=== PATIENT | female | born 1945 | race Caucasian/White ===

== ENCOUNTER 2017-04-11 07:10 | Emergency (ER) | payer MEDICARE, BC ==
[~2017-04-11] VITALS: Ht 157.5 cm; Wt 48.0 kg
[~2017-04-11 07:10] MED LIST: ASPI81TAEC PO; FURO40TA2 PO; K-TA10TA2 PO; LEVA250T PO; VITMTA PO
[2017-04-11] MEDS ORDERED: CARV3.12 PO (07:26)
[2017-04-11] MEDS ORDERED: FUROSEMIDE 40 MG/4 ML VIAL (J1940) IV ONE (07:30)
[2017-04-11] MEDS ORDERED: NS 500 ML IV ONE (07:45)
[2017-04-11 08:02] LABS: ABG BASE EXCESS -7.1 (-2.0-2.0); ABG HCO3 20.1 MEQ/L (22.0-26.0); ABG PARTIAL PRESSURE O2 85.5 mmHg (75.0-100.0); ABG STANDARD HCO3 18.6 MEQ/L (22.0-26.0); ABG TOTAL CO2 21.5 MEQ/L (23.0-31.0)
[2017-04-11 08:08] LABS: ABG pH (ARTERIAL) 7.248 UNITS (7.350-7.450)
--- NOTE | 2017-04-11 08:12 | REP ---
Portable chest: Single view. History: Dyspnea and cough. Comparison study: October 09, 2016. Findings: EKG monitoring electrodes overlie the chest. The patient is status post aortic valve replacement. There are clips in the right paramediastinal region. The heart is mildly enlarged. There is a diffuse interstitial pulmonary edema pattern in the lung montilla. This is somewhat less pronounced actually when compared with the October 09, 2016 prior study. There is fissural thickening. Impression: Cardiomegaly and diffuse interstitial edema pattern consistent with CHF. The patient is status post aortic valve replacement. Signed by Chico Stein MD 04/11/2017 09:05 A
[2017-04-11 08:18] LABS: BASO # 0.1 K/mm3 (0.0-0.2); BASO % 0.8 % (0.0-1.0); EOS # 0.3 K/mm3 (0.0-0.50); EOS % 2.7 % (0.0-3.0); LARGE UNSTAINED CELL # 0.1 K/mm3 (0.0-0.4); LARGE UNSTAINED CELL % 0.9 % (0.0-4.0); LYMPH # 1.9 K/mm3 (1.5-4.5); LYMPH % 15.1 % (24.0-44.0); MEAN CORPUSCULAR HEMOGLOBIN 31.9 pg (27.0-33.0); MEAN CORPUSCULAR HGB CONC 32.5 g/dl (32.0-36.5); MEAN CORPUSCULAR VOLUME 98.2 fl (80.0-96.0); MONO # 0.3 K/mm3 (0.0-0.8); MONO % 2.8 % (0.0-5.0); NEUTROPHILS # 9.1 K/mm3 (1.8-7.7); NEUTROPHILS % 77.6 % (36.0-66.0); PLATELET COUNT, AUTOMATED 483 k/mm3 (150-450); RED CELL DISTRIBUTION WIDTH 14.1 % (11.5-14.5); WHITE BLOOD COUNT 11.7 K/mm3 (4.0-10.0)
[2017-04-11 08:30] LABS: ALBUMIN 3.7 GM/DL (3.2-5.2); ALBUMIN/GLOBULIN RATIO 1.06 (1.00-1.93); BILIRUBIN,DIRECT 0.1 MG/DL (0.0-0.2); BILIRUBIN,TOTAL 0.4 MG/DL (0.2-1.0); CALCIUM LEVEL 8.5 MG/DL (8.8-10.2); CREATININE FOR GFR 1.32 MG/DL (0.55-1.02); GLOMERULAR FILTRATION RATE 41.9 (>39); POTASSIUM SERUM 4.8 MEQ/L (3.5-5.1); THYROXINE (T4) 8.3 UG/DL (4.5-12.0); TOTAL PROTEIN 7.2 GM/DL (6.4-8.2)
[2017-04-11] MEDS ORDERED: ISOVUE-370 76% 100ML VIAL (Q9967) As Ordered ONE (08:43)
--- NOTE | 2017-04-11 10:10 | REP ---
CT pulmonary angiogram: With IV contrast. History: Question pulmonary embolism. Comparison studies: Comparison is made with today's portable chest x-ray. Contrast dose: 75 cc's of Isovue [address] technique: Helical scanning is acquired and overlapping 1.5 mm and contiguous 3 mm axial images are reformatted. In addition, a 3-D work station is deployed to generate thick slab maximum intensity projection images in sagittal and coronal imaging projections. CT pulmonary angiographic findings: There is good opacification of the pulmonary arterial tree. There is no CT evidence of pulmonary embolism. The patient is status post aortic valve replacement. There is no evidence of aortic aneurysm or dissection. There are small bilateral pleural effusions. No pericardial effusion is seen. No hilar or mediastinal mass or adenopathy. Interstitial markings are somewhat prominent in the bases and there are mild emphysematous changes in the upper lung zones. Maximum intensity projection images show no evidence of filling defect or vessel cutoff to suggest a pulmonary arterial thrombus. No pulmonary mass lesion or suspicious nodule is seen. Bone window settings show no bony destructive lesion. No adrenal lesion is observed. The visualized upper abdominal structures are unremarkable. Impression: 1. No CT evidence of pulmonary embolism. 2. Small bilateral pleural effusions. 3. Status post aortic valve replacement with left atrial and left ventricular enlargement. 4. Prominent bibasilar pulmonary interstitial markings question mild edema. Signed by Chico Stein MD 04/11/2017 11:17 A
[2017-04-11 10:23] LABS: ABG BASE EXCESS -0.8 (-2.0-2.0); ABG HCO3 24.4 MEQ/L (22.0-26.0); ABG PARTIAL PRESSURE CO2 42.3 mmHg (35.0-45.0); ABG PARTIAL PRESSURE O2 92.1 mmHg (75.0-100.0); ABG STANDARD HCO3 23.8 MEQ/L (22.0-26.0); ABG TOTAL CO2 25.7 MEQ/L (23.0-31.0); ABG pH (ARTERIAL) 7.379 UNITS (7.350-7.450)
--- NOTE | 2017-04-11 10:23 | ECGEPIP ---
Stationary ECG Study [facility] - ED Test Date: 2017-04-11 Pat Name: JELLY URBINA Department: Room: - Gender: F [employer]: PB : 1945 Requested By: ABDIRIZAK Vargas Order Number: [id number] Reading MD: Latrice Wyman Measurements Intervals [place] Rate: 132 P: 37 AR: 133 QRS: 82 QRSD: 142 T: 39 QT: 299 QTc: 444 Interpretive Statements SINUS TACHYCARDIA INTRAVENTRICULAR CONDUCTION DELAY Left ventricular hypertrophy CLINICAL CORRELATION TO EXCLUDE ACUTE ISCHEMIA Electronically Signed On 04-11-2017 10:23:07 EDT by Latrice Wyman
--- NOTE | 2017-04-11 10:24 | ECGEPIP ---
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
[2017-04-11 12:41] VITALS: BP 92/59
== END 2017-04-11 12:46 | disposition short-term general hospital (02) ==
LOC: M ED 08:11
DX: R57.0 Cardiogenic shock (principal); I50.9 Heart failure, unspecified; I95.9 Hypotension, unspecified; R06.09 Other forms of dyspnea; I51.7 Cardiomegaly; J81.0 Acute pulmonary edema; I35.0 Nonrheumatic aortic (valve) stenosis; Z95.2 Presence of prosthetic heart valve; Z87.891 Personal history of nicotine dependence; Z82.49 Family history of ischemic heart disease and other diseases of the circulatory system; Z80.3 Family history of malignant neoplasm of breast; Z80.0 Family history of malignant neoplasm of digestive organs
CPT/HCPCS: 36415; 36600; 71010; 71275; 80048; 80076; 82550; 82553; 82803; 83605; 83880; 84436; 84443; 84484; 85025; 87040; 93005; 93041; 94660; 96361; 96374; 99285; J1940; Q9967

== ENCOUNTER → 2017-08-28 | Outpatient (CLI) | payer MEDICARE, BC ==
[~2017-08-28] MED LIST changes: +CARV3.12 PO; +ENTR1TAB PO; +LASI20TA PO; +LEVA1TAB PO; -LEVA250T PO; +OXYC-517 PO; +VITA-182 PO
--- NOTE | 2017-08-28 16:10 | REP ---
And an chest PA and lateral views: A comparison is 04/11/2017. There has been interim placement of a triple lead biventricular pacemaker as an interval change. Aortic valve prosthesis is again identified, unchanged. There is a small right pleural effusion as an interval change. No left pleural effusion. The lung montilla are clear otherwise. Cardiac size is upper normal. Impression: New small right pleural effusion. New pacemaker as described. Cardiac valve replacement, unchanged from the prior study. Signed by Ravin Irving MD 08/28/2017 04:02 P
== END ==
LOC: M WUC 14:50
PROVIDERS: ATTEND Nurse Practitioner Adult Health
DX: R07.9 Chest pain, unspecified (principal)

== ENCOUNTER → 2017-09-06 | Outpatient (REF) | payer MEDICARE, BC ==
[2017-09-06 20:22] LABS: AMYLASE 13 U/L (25-115)
== END ==
LOC: M LAB REF 16:32
PROVIDERS: ATTEND Nurse Practitioner Adult Health
DX: I25.10 Atherosclerotic heart disease of native coronary artery without angina pectoris (principal); I50.23 Acute on chronic systolic (congestive) heart failure

== ENCOUNTER → 2017-09-12 | Outpatient (CLI) | payer MEDICARE, BC ==
--- NOTE | 2017-09-12 11:58 | REP ---
ULTRASOUND RIGHT UPPER QUADRANT: Real-time sonographic evaluation of the right upper quadrant performed. No gallstones are seen. There is no gallbladder wall thickening. There is no intrahepatic or extrahepatic biliary dilatation, common bile duct measuring 6 mm in diameter. A few tiny hyperechoic nodular areas are seen in the right lobe of the liver measuring up to 4 mm in diameter probably representing tiny hemangiomas. There is a somewhat complex cyst in the right lobe of the liver adjacent to the gallbladder measuring 8 mm in diameter. There appear to be two solid hypoechoic nodules in the anterior right lobe measuring 1.5 x 1.1 x 1.0 cm and 1.1 cm in diameter. Pancreatic duct is mildly dilated at 5 mm. The pancreatic echotexture is heterogeneous. No discrete pancreatic mass is visualized sonographically. Right kidney demonstrates no hydronephrosis with a length of 10.5 cm. There is a cyst inferiorly measuring 8 mm in diameter. There are vascular calcifications in the right kidney. There is a right pleural effusion. There is moderate perihepatic ascites. IMPRESSION: No gallstones. No biliary dilatation. Two somewhat suspicious appearing nodules in the anterior aspect of the right lobe of the liver. Recommend further evaluation with dedicated MRI or CT with and without contrast. There is also a dilatation of the pancreatic duct up to 5 mm. The pancreas should also be further evaluated with MRI or CT with and without contrast. Pleural effusion. Moderate perihepatic ascites. Signed by Ravin Pedraza MD 09/12/2017 01:02 P
== END ==
LOC: M RAD 09:12
PROVIDERS: ATTEND Nurse Practitioner Adult Health
DX: R10.11 Right upper quadrant pain (principal)

== ENCOUNTER → 2017-09-14 | Outpatient (CLI) | payer MEDICARE, BC ==
[~2017-09-14] MED LIST changes: +GASTROGRAFIN SOLUTION 30ML (Q9963) As Ordered ONE; +ISOVUE-370 76% 100ML VIAL (Q9967) As Ordered ONE
--- NOTE | 2017-09-14 16:25 | REP ---
CT of the abdomen and pelvis multiphase imaging: The study is performed without IV contrast to the tip of the liver. This is followed by IV contrast enhanced scanning during the arterial phase from the diaphragms to the pubic symphysis. This is followed by delayed contrast enhanced imaging to the tip of the liver. The study is correlated with the ultrasound performed earlier today. The liver is markedly abnormal. There are multiple hypodense lesions throughout the hepatic parenchyma seen to best advantage on the delayed images the two largest hypodense areas are posteriorly in the right lobe of the liver but there are multiple other smaller hypodense lesions throughout both right and left lobes of the liver. Findings nonspecific, however neoplasm is a primary diagnostic consideration. Both primary and metastatic can result in this pattern. Diffuse hepatocellular disease is possible but less likely. Biopsy ultimately be required. There is a small right pleural effusion. There is a small volume of ascites around the tip of the liver. The pancreatic duct measures up to 4.5 ml and is slightly dilated. There is no CT evidence of pancreatitis. However, the there is a hypodense lesion in the head of the pancreas seen to best advantage on the delayed images, suggestive of a pancreatic head mass measuring 3.1 cm in diameter. I would recommend MRI follow-up of the liver and of the pancreas for further evaluation. The gallbladder is distended but otherwise unremarkable. The spleen is normal to small size but otherwise unremarkable. The adrenals are unremarkable. The kidneys are unremarkable. Graph there is extensive calcified atheroma throughout the abdominal aorta. The aorta is otherwise date. There is no retroperitoneal adenopathy. There is no bowel distension or obstruction. Pelvis: There is ascites in the dependent pelvis. Pelvic bowel loops are unremarkable. There is a hysterectomy. Vaginal cuff and adnexa are unremarkable. There are no lytic, blastic or destructive skeletal changes. There are is a degenerative disc disease in the lumbar spine. There is degenerative grade 1 anterolisthesis of L5. Impression: I suspect there is a mass in the head of the pancreas. There are multiple hypodense lesions throughout the liver compatible with metastatic disease although primary liver neoplasm is also possible . And diffuse hepatocellular disease, similar appearance. Biopsy may ultimately be required. There is ascites. There is a small right pleural effusion. Signed by Ravin Irving MD 09/14/2017 04:16 P
== END ==
LOC: M RAD 11:36
PROVIDERS: ATTEND Nurse Practitioner Adult Health
DX: K76.89 Other specified diseases of liver (principal); R18.8 Other ascites; J90 Pleural effusion, not elsewhere classified
CPT/HCPCS: 74178; Q9963; Q9967

== ENCOUNTER → 2017-09-18 | Outpatient (REF) | payer MEDICARE, BC ==
[~2017-09-18] MED LIST changes: -GASTROGRAFIN SOLUTION 30ML (Q9963) As Ordered ONE; -ISOVUE-370 76% 100ML VIAL (Q9967) As Ordered ONE
[2017-09-18 16:05] LABS: INR 1.21
== END ==
LOC: M LAB REF 15:10
PROVIDERS: ATTEND Nurse Practitioner Adult Health
DX: K76.9 Liver disease, unspecified (principal)